=== PATIENT | male | born 1940 | race Caucasian/White ===

== ENCOUNTER 2017-04-08 15:59 | Observation (INO) | payer MEDICARE, OTHER ==
[~2017-04-08 15:59] MED LIST: ALBUTEROL INH 0.3 ML AERO NEB; BABY ASPIRIN81 MG PO; BACTRIM DS1 TA1 PO; DURAGESIC1 EAC1 TOP; LASIX40 M1 PO; OXYCONTIN10 M2 PO; POTASSIUM CHLO20 ME3 PO; PREDNISONE10 M1 PO; PRILOSEC10 MG PO; SYMBICORT 160-4.6 GM INH; VITAMIN B-12250 MC2 SL; VITAMIN D31000 UNI3 PO; ZEBETA5 M2 PO; ZOCOR40 MG PO
[2017-04-08 16:55] LABS: BASO % 0.1 % (0-2); EOS % 0.7 % (0-7); EOSINOPHIL ABSOLUTE COUNT 0.1 tho/cmm (0.0-0.7); HGB-HEMOGLOBIN 13.3 gm/dl (13.5-17.0); IMMATURE GRANULOCYTES ABSOLUTE 0.04 tho/cmm (0-0.03); IMMATURE GRANULOCYTES PERCENT 0.6 % (0-0.3); LYMPH % 9.5 % (20-45); LYMPH ABSOLUTE COUNT 0.7 tho/cmm (0.8-4.5); MCH (MEAN CORPUSCULAR HGB) 27.7 pg (28.0-32.0); MCHC MEAN CORPUSCULAR HGB CONC 31.7 % (32.0-36.0); MCV (MEAN CELL VOLUME) 87.5 fl (82.0-96.0); MEAN PLATELET VOLUME 9.8 cmc (9.4-12.4); MONOCYTE ABSOLUTE COUNT 0.4 tho/cmm (0.0-1.2); NEUTROPHIL ABSOLUTE COUNT 6.1 tho/cmm (1.6-8.0); NEUTROPHIL-AUTOMATED 6.1 tho/cmm (1.6-8.0); NEUTROPHILS % 84.1 % (40-80); PLATELET COUNT 174 tho/cmm (150-450); RED CELL DISTRIBUTION WIDTH 15.4 % (12.4-16.4); WHITE BLOOD COUNT 7.3 tho/cmm (4.0-10.0)
[2017-04-08 17:04] LABS: ANION GAP 15 mmol/L (0-20); BLOOD UREA NITROGEN 15 mg/dl (6-24); CALCIUM 9.5 mg/dl (8.5-10.5); CARBON DIOXIDE-VENOUS 29 mmol/L (22-32); CHLORIDE 102 mmol/l (96-110); CREATININE 1.18 mg/dl (0.60-1.30); GLUCOSE 115 mg/dL (70-110); POTASSIUM 4.9 mmol/L (3.7-5.1); SODIUM 141 mmol/L (135-145); eGFR VALUE FOR BLACK 69 mL/Min
[2017-04-08] MEDS ORDERED: AMIODARONE HCL200 M1 PO (17:26)
[2017-04-08] MEDS ORDERED: ELIQUIS5 M1 PO (17:26)
[2017-04-08] MEDS ORDERED: ASPIRIN81 M1 PO (17:26)
[2017-04-08] MEDS ORDERED: LORAZEPAM1 M1 PO (17:27)
[2017-04-08] MEDS ORDERED: POTASSIUM CHLO20 ME3 PO (17:28)
[2017-04-08 17:30] LABS: PROCALCITONIN <0.05 ng/ml (0.05-0.09)
[2017-04-08 18:41] LABS: ABG CO2 ARTERIAL 29 mmol/L (21-27); ARTERIAL BLD GAS O2 SATURATION 90 % (95-98); ARTERIAL BLOOD GAS PCO2 39 mmHg (32-45); ARTERIAL PO2 59 mmHg (70-100); BICARBONATE 27 mmol/L (21-28); BLOOD GAS BASE EXCESS 4 mM/L (-/+3); PH 7.46 Units (7.35-7.45)
[2017-04-08 20:23] LABS: URINE BILIRUBIN NEGATIVE (NEG); URINE BLOOD NEGATIVE (NEG); URINE GLUCOSE (UA) NEGATIVE (NEG); URINE KETONE NEGATIVE (NEG); URINE LEUKOCYTE ESTERASE NEGATIVE (NEG); URINE NITRITE NEGATIVE (NEG); URINE PROTEIN NEGATIVE (NEG)
[2017-04-08 20:24] LABS: URINE APPEARANCE CLEAR; URINE COLOR YELLOW
[2017-04-08 20:28] LABS: URINE EPITHELIAL CELLS 0 /[HPF] (0-10); URINE RBC 0 /[HPF] (0-5); URINE WBC 0 /[HPF] (0-5)
[2017-04-09 00:42] LABS: ALB/GLOB RATIO 0.8 (0.8-2.0); ALBUMIN 3.5 g/dl (3.5-5.0); BILIRUBIN,DIRECT 0.2 mg/dl (0.0-0.3); BILIRUBIN,INDIRECT 0.4 mg/dL (0.0-1.0); BILIRUBIN,TOTAL 0.6 mg/dl (0.0-1.5); PHOSPHOROUS 2.6 mg/dl (2.5-4.9)
[2017-04-10] MEDS ORDERED: BISOPROLOL FUMAR5 M1 PO (12:44)
== END 2017-04-10 13:45 ==
LOC: CAR1 15:59 → PCUA 04-09 17:51
PROVIDERS: Nurse Practitioner; ADMIT Internal Medicine Critical Care Medicine
PROC: 4A033R1 Measurement of Arterial Saturation, Peripheral, Percutaneous Approach (ICD-10-PCS; 2017-04-08)
PROC: 0B9J8ZX Drainage of Left Lower Lung Lobe, Via Natural or Artificial Opening Endoscopic, Diagnostic (ICD-10-PCS; principal; 2017-04-09)
DX: T17.890A Other foreign object in other parts of respiratory tract causing asphyxiation, initial encounter (principal); E78.5 Hyperlipidemia, unspecified; I48.0 Paroxysmal atrial fibrillation; J96.20 Acute and chronic respiratory failure, unspecified whether with hypoxia or hypercapnia; J44.9 Chronic obstructive pulmonary disease, unspecified; I25.10 Atherosclerotic heart disease of native coronary artery without angina pectoris; I27.2 Other secondary pulmonary hypertension; C34.90 Malignant neoplasm of unspecified part of unspecified bronchus or lung; C79.51 Secondary malignant neoplasm of bone; K21.9 Gastro-esophageal reflux disease without esophagitis; I11.0 Hypertensive heart disease with heart failure; I50.30 Unspecified diastolic (congestive) heart failure; Z66 Do not resuscitate; Z79.01 Long term (current) use of anticoagulants; Z79.82 Long term (current) use of aspirin; Z79.899 Other long term (current) drug therapy; Z87.891 Personal history of nicotine dependence; Z80.1 Family history of malignant neoplasm of trachea, bronchus and lung; Z90.49 Acquired absence of other specified parts of digestive tract; Z95.1 Presence of aortocoronary bypass graft; Z90.89 Acquired absence of other organs; Z98.890 Other specified postprocedural states; Z99.81 Dependence on supplemental oxygen
CPT/HCPCS: G0378; G0379; G8987-GO-CI; G8988-GO-CI; G8989-GO-CI; J0282; J2250; J2930; J3010